=== PATIENT | male | born 1945 | race Caucasian/White ===

== ENCOUNTER → 2018-06-13 13:15 | Outpatient (CLI) | payer MEDICARE, OTHER, SELFPAY ==
--- NOTE | 2018-06-13 13:17 | DI.RAD.S_ITS ---
PROCEDURE: XR CHEST 2V INDICATIONS: cough TECHNIQUE: 2 views of the chest were acquired. COMPARISON: [facility], , CHEST 2 VIEW, 10/07/2009, 1:46. FINDINGS: Surgical changes and devices: None. Lungs and pleura: No pleural effusions or pneumothorax. Lungs are clear. Mediastinum: Mediastinal contours are normal. Heart size is normal. Bones and chest wall: No suspicious bony abnormalities. Soft tissues appear unremarkable. IMPRESSION: No acute cardiopulmonary disease. Dictated by: Amanda Gunn M.D. on 06/13/2018 at 13:35 Approved by: Amanda Gunn M.D. on 06/13/2018 at 13:35
== END ==
PROVIDERS: Visit Provider Physician Assistant
DX: R05 Cough (principal)
CPT/HCPCS: 71046

== ENCOUNTER → 2021-06-02 10:38 | Outpatient (CLI) | payer MEDICARE, OTHER, SELFPAY ==
[2021-06-02 12:10] LABS: Prostate Specific Antigen < 0.064 ng/mL (0.10-4.00)
== END ==
PROVIDERS: PCP Obstetrics & Gynecology; Referring Provider Specialist; Visit Provider Specialist
DX: C61 Malignant neoplasm of prostate (principal)
CPT/HCPCS: 36415; 84153

== ENCOUNTER → 2022-07-16 09:53 | Outpatient (CLI) | payer MEDICARE, OTHER, SELFPAY ==
[2022-07-16 11:30] LABS: COVID19 -Nasal RAPID Negative (Negative)
== END ==
PROVIDERS: PCP Obstetrics & Gynecology; Visit Provider Surgery
DX: Z20.822 Contact with and (suspected) exposure to COVID-19 (principal); Z01.812 Encounter for preprocedural laboratory examination
CPT/HCPCS: 87635; C9803

== ENCOUNTER 2022-07-19 09:14 | Day surgery (SDC) | payer MEDICARE, OTHER, SELFPAY ==
[2022-07-19] VITALS (7 sets, daily range): BP systolic 85–129; BP diastolic 54–72; PULSE 49–97; RESP 14–20; TEMP 36.3–36.8; O2SAT 96–98; BMI 25.8
--- NOTE | 2022-07-19 | PATH_ITS ---
[facility] Accession Number: [id number] . 01 Material submitted: . colon - COLON POLYPS . 01 Diagnosis: Colon Polyps, Biopsies: Tubular adenoma x2. [facility] 07/22/2022 1744 Local . 01 Electronically signed: . Huan Henderson MD, PhD, Pathologist NPI- [id number] . 01 Gross description: . The specimen is received in formalin, labeled with the patient's name and colon polyps, and consists of two irregular lacey soft tissue fragments ranging from 0.2 cm to 0.3 cm in greatest dimension. Submitted entirely in cassette A1. ([id number]) /FRR 07/22/2022 0307 Local . 01 Pathologist provided ICD-10: D12.6 . 01 CPT . 619205 Specimen Comment: A courtesy copy of this report has been sent to [phone] Performed at: 01 [facility] [address] [place] [id number] MD Laurent Parrish MD Phone: [phone]
[2022-07-19] MEDS: SODIUM CHLORIDE 0.9% 1,000 ML 84 ML IV (09:50)
--- NOTE | 2022-07-19 10:24 | PM.HP.1 ---
History of Present Illness History of Present Illness Date Patient Seen: 07/19/22 Time Patient Seen: 10:24 Chief complaint: COLONOSCOPY Narrative: Personal history of colon polyps. Patient History Medical History Elevated PSA History of malignant neoplasm of prostate HTN (hypertension) Prostate cancer Prostate cancer Surgical History H/O prostate biopsy Hx of appendectomy Hx of tonsillectomy Family & Social History Social History: household members spouse Tobacco & Substance use: Smoking Status Never smoker alcohol intake current alcohol intake frequency 0-2 drinks per day Substance Use Type does not use Meds Home Medications and Allergies Home Medications Medication Instructions Recorded Confirmed Type aspirin 81 mg tablet,delayed 81 mg PO DAILY 06/13/18 07/19/22 History release (Adult Low Dose Aspirin) rosuvastatin 40 mg tablet 40 mg PO DAILY 06/13/18 07/19/22 History famotidine 20 mg tablet 20 mg PO DAILY 06/12/20 07/19/22 History atenolol 50 mg-chlorthalidone 25 0.5 tab PO DAILY 06/11/21 07/19/22 History mg tablet cholecalciferol (vitamin D3) 50 50 mcg PO DAILY 06/11/21 07/19/22 History mcg (2,000 unit) capsule lisinopril 10 mg tablet 10 mg PO DAILY 06/11/21 07/19/22 History Allergies Allergy/AdvReac Type Severity Reaction Status Date / Time No Known Drug Allergies Allergy Verified 06/11/21 10:01 Review of Systems Review of Systems ROS: Yes All systems reviewed with the patient and are negative except as otherwise documented Exam Vital Signs (past 8 hours): - 07/19/22 09:37 Temperature 97.5 F L Pulse Rate 97 H Respiratory Rate 16 Blood Pressure 129/72 Pulse Oximetry 96 Oxygen Delivery Method Room Air Oxygen Delivery Method Room Air Const General: cooperative HENMT Head: normal to inspection Eyes General: appearance normal, both eyes and all related structures Neck Neck: normal visual inspection Chest Chest: normal inspection of the chest Resp Effort & Inspection: normal respiratory effort Cardio Rate: regular rate GI Inspection: normal to inspection Skin General: no rashes or lesions noted Neuro General: patient alert and patient awake Extrem General: normal to inspection and no pedal edema Psych Appearance: grossly normal Assessment & Plan Assessment & Plan narrative: 76-year-old male with a personal history of colon polyps. Colonoscopy is planned for today. Time Spent With Patient Critical Care time: I spent a total of [] minutes of critical care time on this patient's care today; this time is exclusive of procedural time.
--- NOTE | 2022-07-19 10:25 | PM.PREOP ---
Pre-operative Note COVID-19 COVID-19 status: Negative Result date/Date tested (Pos, Neg/Pending): 07/16/22 Criteria for continued procedure: Possibility delay results in more complex future surgery or treatment Interval Note History & Physical reviewed/Exam performed by Physician: Yes Changes to H&P: No ASA Class (for procedural sedation): II
--- NOTE | 2022-07-19 11:18 | P.OP.COLON_ITS ---
Operative Date/Time/Diagnoses Date of procedure: 07/19/22 Time of procedure: 11:18 Pre-op diagnosis: Personal history of colon polyps Post-op diagnosis: same Procedure & Clinicians Study performed: Colonoscopy with cold snare polypectomy and cold forceps polypectomy Same procedure as scheduled: Yes Indications: Personal history of colon polyps Surgeon: Abelardo Tapia Procedure Notes SCOAP/Timeout: Done Procedure in detail: After the risks and benefits were explained, written and verbal informed consent was obtained. The patient was brought into the procedure room and placed into the left lateral decubitus position. Please see nurse turbine engine assembler notes for sedation details. Digital rectal examination was accomplished. The scope was introduced into the patient and advanced under direct visualization to the cecum as identified by the appendiceal orifice and ileocecal valve. The scope was slowly withdrawn to carefully examine the mucosa for any defects or lesions. Comprehensive imaging was accomplished throughout the rectum including the dentate line. The colon was decompressed, the scope was then removed from the patient who tolerated the procedure well. Adult colonoscope Bowel prep adequate Scope withdrawal time: 13 minutes Sedation minutes: 19 Complications: none Impression: Patient had fairly extensive diverticulosis throughout the sigmoid. In the ascending and transverse were 2 diminutive polyps. The ascending was removed with cold snare and the transverse with cold forceps. These were submitted as ?colon polyps?. No additional significant pathology was appreciated throughout. Grade 2 internal hemorrhoids were noted. Endoscopic diagnosis 1. Diverticulosis 2. Grade 2 hemorrhoids 3. Diminutive colon polyps x2 Post-procedure Plan for aftercare: 1. Await histopathology 2. Follow-up in primary care as before. Disposition: PACU
--- NOTE | 2022-07-19 11:33 | SUR.PHASEI ---
Report given to Edu
== END 2022-07-19 12:06 | disposition home or self-care (01) ==
PROVIDERS: PCP Obstetrics & Gynecology; Referring Provider Internal Medicine Gastroenterology; Visit Provider Internal Medicine Gastroenterology
PROC: 0DJD8ZZ Inspection of Lower Intestinal Tract, Via Natural or Artificial Opening Endoscopic (ICD-10-PCS; CPT 45378; principal; 2022-07-19 10:30)
DX: Z12.11 Encounter for screening for malignant neoplasm of colon (principal); Z86.010 Personal history of colon polyps; I10 Essential (primary) hypertension; K57.30 Diverticulosis of large intestine without perforation or abscess without bleeding; K64.1 Second degree hemorrhoids; D12.6 Benign neoplasm of colon, unspecified
CPT/HCPCS: 45385; 45380; J2704

== ENCOUNTER → 2024-05-01 08:18 | Outpatient (CLI) | payer MEDICARE, OTHER, SELFPAY ==
[2024-05-01 09:49] LABS: Add Manual Diff / Slide Review NO; Basophils Absolute Auto 0 /uL (0-100); Basophils Percent Auto 0.9 % (0-2); Eosinophils Absolute Auto 200 /uL (0-450); Eosinophils Percent Auto 3.7 % (2-4); Hematocrit 42.7 % (41-53); Hemoglobin 14.8 g/dL (13.5-17.5); Lymphocytes Absolute Auto 1400 /uL (1100-4500); Lymphocytes Percent Auto 28.5 % (25-40); Mean Corpuscular HGB Conc 34.7 % (30-36); Mean Corpuscular Hemoglobin 32.4 PG (26-34); Mean Corpuscular Volume 93.4 fL (80-100); Monocytes Absolute Auto 500 /uL (0-900); Monocytes Percent Auto 9.3 % (3-14); Neutrophils Absolute Auto 2900 /uL (1500-7000); Neutrophils Percent Auto 57.6 % (50-75); Platelet Count 210 X10^3/uL (150-400); Red Blood Cell Count 4.57 X10^6/uL (4.5-5.9); Red Cell Distribution Width 12.9 % (11.6-14.8); White Blood Cell Count 5.1 X10^3/uL (4.5-11.0)
[2024-05-01 10:12] LABS: Alanine Aminotransferase 28 IU/L (<50); Albumin 4.3 g/dL (3.5-5.0); Albumin Globulin Ratio 1.9 (1.0-2.8); Alkaline Phosphatase 77 U/L (38-126); Aspartate Aminotransferase 33 IU/L (17-59); BUN Creatinine Ratio 15.8 (6-22); Bilirubin Total 0.9 mg/dL (0.2-1.3); Blood Urea Nitrogen 12 mg/dL (9-20); Calcium 9.6 mg/dL (8.4-10.2); Carbon Dioxide 28 mmol/L (22-32); Chloride 100 mmol/L (98-107); Cholesterol 132 mg/dL (140-199); Estimated Glomerular Filt Rate > 60 mL/min (>60); Globulin 2.3 g/dL (1.7-4.1); Glucose 105 mg/dL (80-110); HDL Cholesterol 59 mg/dL (40-60); HEMOLYSIS < 15 (0-50); LDL Cholesterol Calculated 54 mg/dL (<100); Potassium 4.2 mmol/L (3.4-5.1); Sodium 135 mmol/L (137-145); Total Protein 6.6 g/dL (6.3-8.2); Triglycerides 97 mg/dL (35-150)
[2024-05-01 10:17] LABS: Hemoglobin A1C% w Est Avg Glu 5.4 % (4.0-6.0)
[2024-05-01 10:29] LABS: Vitamin D 25 Hydroxy (D3) 54.4 ng/mL (30.0-100.0)
[2024-05-02 08:39] LABS: PSA, Total < 0.1 ng/mL (0.0-4.0)
== END ==
PROVIDERS: PCP Family Medicine; Referring Provider Family Medicine; Visit Provider Family Medicine
DX: R73.09 Other abnormal glucose (principal); E78.5 Hyperlipidemia, unspecified; E55.9 Vitamin D deficiency, unspecified; I10 Essential (primary) hypertension; Z85.46 Personal history of malignant neoplasm of prostate
CPT/HCPCS: 36415; 80053; 80061; 82306; 83036; 84153; 84154; 85025

== ENCOUNTER → 2024-10-09 10:58 | Outpatient (CLI) | payer MEDICARE, OTHER, SELFPAY ==
[2024-10-09 12:18] LABS: BUN Creatinine Ratio 22.2 (6-22); Blood Urea Nitrogen 18 mg/dL (9-20); Calcium 9.8 mg/dL (8.4-10.2); Carbon Dioxide 29 mmol/L (22-32); Chloride 99 mmol/L (98-107); Estimated Glomerular Filt Rate > 60 mL/min (>60); Glucose 92 mg/dL (80-110); HEMOLYSIS < 15 (0-50); Sodium 136 mmol/L (137-145)
[2024-10-09 12:30] LABS: Vitamin D 25 Hydroxy (D3) 39.5 ng/mL (30.0-100.0)
== END ==
PROVIDERS: PCP Family Medicine; Referring Provider Family Medicine; Visit Provider Family Medicine
DX: E55.9 Vitamin D deficiency, unspecified (principal); E78.5 Hyperlipidemia, unspecified; I10 Essential (primary) hypertension
CPT/HCPCS: 36415; 80048; 82306